=== PATIENT | male | born 1995 | race Caucasian/White ===

== ENCOUNTER 2021-05-22 15:47 | Emergency (ER) | payer MEDICAID ==
[2021-05-22] MEDS ORDERED: Adacel Vial IM ONE ×2 (16:10→16:57)
[2021-05-22] MEDS ORDERED: BACIGUENT PACKET TP ONE (16:10)
[2021-05-22] MEDS ORDERED: XYLOCAINE 1% HCL 20 ML MDV IJ ONE (16:10)
[2021-05-22] MEDS ORDERED: XYLOCAINE 1% HCL 20 ML MDV ONE (16:12)
--- NOTE | 2021-05-22 16:14 | ERPHSYRPT ---
- History of Present Illness Time Seen by Provider: 05/22/21 16:14 Source: patient Exam Limitations: no limitations Physician History: This is a right-handed 26-year-old white male who accidentally cut his right thumb prior to arrival. His tetanus status is up-to-date. Timing/Duration: today Severity: moderate, severe Location: hands (Right hand palmar aspect thumb distal) Associated Symptoms: denies symptoms Allergies/Adverse Reactions: amoxicillin Allergy (Verified 05/22/21 16:44) Travel Risk - International Travel Have you traveled outside of the country in past 3 weeks: No - Coronavirus Screening Are you exhibiting any of the following symptoms?: No Close contact with a COVID-19 positive Pt in past 14-21 Days: No - Review of Systems Constitutional: No Symptoms Eyes: No Symptoms Ears, Nose, & Throat: No Symptoms Respiratory: No Symptoms Cardiac: No Symptoms Abdominal/Gastrointestinal: No Symptoms Genitourinary Symptoms: No Symptoms Musculoskeletal: No Symptoms Skin: Other (Flap laceration distal right thumb) Neurological: No Symptoms Psychological: No Symptoms Endocrine: No Symptoms Hematologic/Lymphatic: No Symptoms Immunological/Allergic: No Symptoms All Other Systems: Reviewed and Negative - Past Medical History Pertinent Past Medical History: Yes - Past Surgical History Past Surgical History: Yes - Nursing Vital Signs Nursing Vital Signs: Initial Vital Signs Temperature 98.4 F 05/22/21 15:48 Pulse Rate 53 L 05/22/21 15:48 Respiratory Rate 19 05/22/21 15:48 Blood Pressure 118/65 05/22/21 15:48 O2 Sat by Pulse Oximetry 96 05/22/21 15:48 Pain Scale Pain Intensity 5 - Physical Exam General Appearance: no apparent distress, alert, anxiety Eye Exam: PERRL/EOMI, eyes nml inspection Ears, Nose, Throat Exam: normal ENT inspection, moist mucous membranes Neck Exam: normal inspection, non-tender, supple, full range of motion Respiratory Exam: No chest tenderness Gastrointestinal/Abdomen Exam: No tenderness Rectal Exam: not done Back Exam: normal inspection, normal range of motion, CVA tenderness Extremity Exam: normal range of motion, pelvis stable Neurologic Exam: alert, oriented x 3, cooperative, financial service representative II-XII nml as tested, normal mood/affect, nml cerebellar function, nml station & gait, sensation nml Skin Exam: laceration (Flap 1/2 cm x 1-1/2 cm oval laceration distal aspect pal mar aspect right thumb) Lymphatic Exam: No adenopathy SpO2 Interpretation: normal O2 Delivery: Room Air Procedures - Laceration/Wound Repair Right Distal Volar Finger Time of Procedure: 16:40 Wound Location: Right, hand (Palmar aspect, distal aspect right thumb) Wound Length (cm): 1.5 Wound's Depth, Shape: superficial, flap Wound Explored: clean (No foreign body noted, evaluation of bloodless field to the base) Irrigated: Yes Hibiclens Prep: Yes Anesthesia: 1% Lidocaine (2-1/2 mL total) Volume Anesthetic (ccs): 2.5 Suture Size/Type: 6-0, 4-0, nylon Layer Closure?: No Progress: 05/22/21 16:59 Patient neurovascularly intact. Patient's tendon function is intact. - Course Nursing assessment & vital signs reviewed: Yes Ordered Tests: Medication Summary Discontinued Medications Generic Name Dose Route Start Last Admin Trade Name Freq PRN Reason Stop Dose Admin Bacitracin Zinc 0.9 gm 05/22/21 16:10 05/22/21 17:08 Bacitracin Packet 0.9 Gm Pckt TP 05/22/21 16:11 0.9 gm STAT ONE Administration Bacitracin Zinc Confirm 05/22/21 16:58 Bacitracin Packet 0.9 Gm Pckt Administered 05/22/21 16:59 Dose 1 gm .ROUTE .STK-MED ONE Diphtheria/Tetanus/Acell Pertussis 0.5 ml 05/22/21 16:10 05/22/21 17:07 Tdap --Diph,Pertuss(Acell),Tet Vac/Pf 0.5 Ml Vial IM 05/22/21 16:11 Not Given .ONCE ONE Diphtheria/Tetanus/Acell Pertussis Confirm 05/22/21 16:57 Tdap --Diph,Pertuss(Acell),Tet Vac/Pf 0.5 Ml Vial Administered 05/22/21 16:58 Dose 0.5 ml IM .STK-MED ONE Lidocaine HCl 5 ml 05/22/21 16:10 05/22/21 17:08 Lidocaine Hcl 1% 20 Ml Mdv 20 Ml Ml IJ 05/22/21 16:11 5 ml STAT ONE Administration Lidocaine HCl Confirm 05/22/21 16:12 Lidocaine Hcl 1% 20 Ml Mdv 20 Ml Ml Administered 05/22/21 16:13 Dose 5 ml .ROUTE .STK-MED ONE - Progress Progress: improved Counseled pt/family regarding: diagnosis, need for follow-up - Departure Departure Disposition: Home Clinical Impression: Laceration of thumb Condition: Stable Critical Care Time: No Referrals: DOCTOR,NO FAMILY [Primary Care Provider] - Follow up/PCP as directed Instructions: Wound Care (DC), Laceration Repair With Stitches (DC) Additional Instructions: Keep current bandage in place until the afternoon of 05/24/2021. After 5 PM on 05/24/2021, remove the top bandage. Wash the site with soap and water. Blot dry use a hairdryer to dry the site and reapply a thin layer of antibiotic ointment of choice. Cover with bandage again. Suture removal in 10 days. Expect purple or black discoloration and possible flap loss. If there is redness or increased tenderness follow-up with your primary care physician or the emergency department.
[2021-05-22] MEDS ORDERED: BACIGUENT PACKET ONE (16:58)
[2021-05-25 17:03] VITALS: BP 120/66; PULSE 56; O2SAT 97
== END 2021-05-22 17:19 ==
LOC: ED 15:47
DX: S61.011A Laceration without foreign body of right thumb without damage to nail, initial encounter (principal); W45.8XXA Other foreign body or object entering through skin, initial encounter
CPT/HCPCS: 12001; 90715; 96372; 99283; A9270-GY